=== PATIENT | female | born 2000 | race Caucasian/White ===

== ENCOUNTER 2018-11-26 02:26 | Emergency (ER) | payer SELFPAY ==
[2018-11-26 04:32] LABS: Basophils % 0.7 % (0-1.3); Hematocrit 37.9 % (36.0-45.0); Lymphocytes % 35.8 % (15.3-44.8); MPV 7.3 fL (7.6-11.3)
[2018-11-26 04:55] LABS: ALT/SGPT 53 U/L (12-78); AST/SGOT 21 U/L (15-37); Albumin 4.3 g/dL (3.4-5.0); Alkaline Phosphatase 82 U/L (45-117); BUN Blood Urea Nitrogen 15 mg/dL (7-18); Bicarbonate 23 mmol/L (21-32); Bilirubin Direct 0.1 mg/dL (0-0.2); Bilirubin Total 0.3 mg/dL (0.2-1.0); Glucose Level 93 mg/dL (74-106); Lipase 83 U/L (73-393); NT PRO-BNP 34 pg/mL (<125); Protein, Total 8.7 g/dL (6.4-8.2); Sodium Level 142 mmol/L (136-145); Troponin (Emerg Dept Use Only) < 0.02 ng/mL (0.0-0.045)
[2018-11-26 05:00] LABS: Urine Blood 1+ (NEG); Urine Glucose NEGATIVE (NEG); Urine Protein NEGATIVE (NEG); Urine Specific Gravity 1.025 (1.005-1.030); Urine pH 6.5 (5.0-7.0)
--- NOTE | 2018-11-26 06:29 | ER ---
Nurse's Notes [facility] Name: Nia Cowan Age: 18 yrs Sex: Female : 2000 Arrival Date: 11/26/2018 Time: 02:31 Bed 6 Private MD: Diagnosis: Chest pain on breathing;Urinary tract infection, site not specified Presentation: 11/26 02:55 Presenting complaint: Patient states: Chest pain radiating to back that began about lp1 2300, no improvement; States shortness of breath. Transition of care: patient was not received from another setting of care. Onset of symptoms was November 25, 2018 at 23:00. Risk Assessment: Do you want to hurt yourself or someone else? Patient reports no desire to harm self or others. Initial Sepsis Screen: Does the patient meet any 2 criteria? No. Patient's initial sepsis screen is negative. Does the patient have a suspected source of infection? No. Patient's initial sepsis screen is negative. Care prior to arrival: None. 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 - Social history:: Smoking status: Patient/guardian denies using tobacco. - Ebola Screening: : No symptoms or risks identified at this time. - Family history:: not pertinent. Screenin:57 Abuse screen: Denies threats or abuse. Denies injuries from another. Nutritional lp1 screening: No deficits noted. Tuberculosis screening: No symptoms or risk factors identified. Fall Risk None identified. Assessment: 03:00 General: Appears in no apparent distress. Behavior is calm, cooperative, appropriate lp1 for age. Pain: Complains of pain in chest Pain radiates to back Pain currently is 8 out of 10 on a pain scale. Neuro: Level of Consciousness is awake, alert, obeys commands, Oriented to person, place, time, situation. Cardiovascular: Reports chest pain, Patient's skin is warm and dry. Rhythm is sinus rhythm. Respiratory: Reports shortness of breath Airway is patent Respiratory effort is even, unlabored, Breath sounds are clear bilaterally. Onset: The symptoms/episode began/occurred gradually, the patient has mild shortness of breath. GI: No signs and/or symptoms were reported involving the gastrointestinal system. : No signs and/or symptoms were reported regarding the genitourinary system. EENT: No signs and/or symptoms were reported regarding the EENT system. Derm: Skin is pink, warm \\T\\ dry. Musculoskeletal: No signs and/or symptoms reported regarding the musculoskeletal system. 04:25 Reassessment: Patient anxious during peripheral IV insertion, became diaphoretic lp1 stating, "I feel like I'm going to pass out"; BP 98/63 HR 79 O2 99% RA. 04:32 Reassessment: Patient drinking water at this time Patient states feeling better. lp1 06:12 Reassessment: radiology transporter explained to dr that pt's iv went bad while injecting fc contrast. Dr requested that IV be restarted. I went in to talk to pt and look for a site to start IV and pt stated that she did not want IV restarted. Dr aware. 06:15 Reassessment: Dr. Monaco spoke with patient about leaving AMA, patient demonstrates lp1 wanting to leave, "I will come back if it gets worse"; Patient ambulating with significant other. Vital Signs: 02:56 BP 130 / 89; Pulse 95; Resp 18; Temp 98.5(O); Pulse Ox 99% on R/A; Weight 90.72 kg; lp1 Height 5 ft. 1 in. (154.94 cm); Pain 8/10; 03:30 BP 127 / 72; Pulse 79; Resp 18; Pulse Ox 99% on R/A; lp1 04:31 BP 117 / 69; Pulse 69; Resp 20; Pulse Ox 98% on R/A; lp1 06:28 BP 120 / 70; Pulse 87; Resp 16; Pulse Ox 99% on R/A; lp1 02:56 Body Mass Index 37.79 (90.72 kg, 154.94 cm) lp1 ED Course: 02:31 Patient arrived in ED. cf2 02:50 Lorraine Beaver, KRISSY is Primary Nurse. lp1 02:56 Triage completed. lp1 02:57 Arm band placed on left wrist. lp1 02:58 Patient has correct armband on for positive identification. Placed in gown. Bed in low lp1 position. 03:09 Russell Monaco MD is Attending Physician. flo 03:59 XRAY Chest (1 view) In Process Unspecified. EDMS 04:29 Accessed peripheral vein via ultrasound, utilizing dynamic ultrasound technique using lp1 ,sterile technique, per hospital protocol. Clean \\T\\ dry. Good blood return. Flushes easily. 22g to R AC. 04:51 Radiology exam delayed due to lab results not completed at this time. (BUN/Creatinine) kw1 test not completed at this time. 06:16 Note: Patient infiltrated approximately 60 ml of IV contrast during CT PE exam. kw1 Returned patient to ER and advised nurse of infiltration as well as Dr. Monaco. Patient left AMA.. 06:27 No provider procedures requiring assistance completed. IV discontinued, No lp1 redness/swelling at site. Pressure dressing applied. Administered Medications: 06:28 Not Given (Patient Refused): morphine 2 mg IVP once; (PAIN>8) RASS on ADMN: Combtv4, lp1 Very Agttd3, Agttd2, Rstlss1, AlertClm0, Drwsy-1, LtSdtn-2, ModSdtn-3, DpSdtn-4, UnArsble-5 x2 06:28 Not Given (Patient Refused): Zofran 4 mg IVP once; over 2 minutes lp1 Outcome: 06:28 AMA AMA form signed lp1 06:28 Condition: stable 06:29 Patient left the ED. lp1 Signatures: Dispatcher [employer] EDOR Russell Monaco MD MD cha Chretien, Felicia, RN RN Lorraine Barnard, KRISSY RN lp1 Desire Pierce kw1 Hugo Huynh cf2 Corrections: (The following items were deleted from the chart) 03:20 02:56 BP 130 / 89; Pulse 95bpm; Resp 18bpm; Pulse Ox 99% RA; 90.72 kg; Height 5 ft. 1 lp1 in.; BMI: 37.7; Pain 8/10; lp1 03:45 03:00 Pain: Complains of pain in chest Pain radiates to back Pain currently is 8 out of lp1 10 on a pain scale. lp1 03:45 03:00 Respiratory: Reports shortness of breath Airway is patent Respiratory effort is lp1 even, unlabored, Breath sounds are clear bilaterally. lp1
--- NOTE | 2018-11-26 06:29 | EDPHYS ---
Physician Documentation [facility] Name: Nia Cowan Age: 18 yrs Sex: Female : 2000 Arrival Date: 11/26/2018 Time: 02:31 Bed 6 Private MD: ED Physician Russell Monaco HPI: 11/26 03:46 This 18 yrs old Female presents to ER via Ambulatory with complaints of flo Shortness Of Breath, Chest Pain. 03:46 The patient has shortness of breath at rest, with light activity. Onset: The flo symptoms/episode began/occurred this morning, today. Duration: The symptoms are intermittent, with no pattern. The patient's shortness of breath has no apparent modifying factors. Associated signs and symptoms: The patient has no apparent associated signs or symptoms. Severity of symptoms: At their worst the symptoms were mild moderate in the emergency department the symptoms are unchanged. The patient has not experienced similar symptoms in the past. 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 - Social history:: Smoking status: Patient/guardian denies using tobacco. - Ebola Screening: : No symptoms or risks identified at this time. - Family history:: not pertinent. ROS: 03:46 Constitutional: Negative for fever, chills, and weight loss, Eyes: Negative for injury, flo pain, redness, and discharge, ENT: Negative for injury, pain, and discharge, Neck: Negative for injury, pain, and swelling, Abdomen/GI: Negative for abdominal pain, nausea, vomiting, diarrhea, and constipation, Back: Negative for injury and pain, : Negative for injury, bleeding, discharge, and swelling, MS/Extremity: Negative for injury and deformity, Skin: Negative for injury, rash, and discoloration, Neuro: Negative for headache, weakness, numbness, tingling, and seizure. 03:46 Cardiovascular: Positive for chest pain. 03:46 Respiratory: Positive for cough, with no reported sputum. Exam: 03:46 Constitutional: This is a well developed, well nourished patient who is awake, alert, flo and in no acute distress. Head/Face: Normocephalic, atraumatic. Eyes: Pupils equal round and reactive to light, extra-ocular motions intact. Lids and lashes normal. Conjunctiva and sclera are non-icteric and not injected. Cornea within normal limits. Periorbital areas with no swelling, redness, or edema. ENT: Nares patent. No nasal discharge, no septal abnormalities noted. Tympanic membranes are normal and external auditory canals are clear. Oropharynx with no redness, swelling, or masses, exudates, or evidence of obstruction, uvula midline. Mucous membranes moist. Neck: Trachea midline, no thyromegaly or masses palpated, and no cervical lymphadenopathy. Supple, full range of motion without nuchal rigidity, or vertebral point tenderness. No Meningismus. Cardiovascular: Regular rate and rhythm with a normal S1 and S2. No gallops, murmurs, or rubs. Normal PMI, no JVD. No pulse deficits. Respiratory: Lungs have equal breath sounds bilaterally, clear to auscultation and percussion. No rales, rhonchi or wheezes noted. No increased work of breathing, no retractions or nasal flaring. Abdomen/GI: Soft, non-tender, with normal bowel sounds. No distension or tympany. No guarding or rebound. No evidence of tenderness throughout. Back: No spinal tenderness. No costovertebral tenderness. Full range of motion. Pelvic Exam: Normal external genitalia. Speculum exam with closed cervical os, no discharge or bleeding noted. Bimanual exam with normal adnexa, no adnexal or cervical motion tenderness. Normal uterus. Female : Normal external genitalia. Skin: Warm, dry with normal turgor. Normal color with no rashes, no lesions, and no evidence of cellulitis. MS/ Extremity: Pulses equal, no cyanosis. Neurovascular intact. Full, normal range of motion. Neuro: Awake and alert, GCS 15, oriented to person, place, time, and situation. Cranial nerves II-XII grossly intact. Motor strength 5/5 in all extremities. Sensory grossly intact. Cerebellar exam normal. Normal gait. Psych: Awake, alert, with orientation to person, place and time. Behavior, mood, and affect are within normal limits. 03:46 Chest/axilla: Inspection: normal, Palpation: is normal, no acute changes, Axilla: are normal, Breasts: are normal, Lymph nodes: lymphadenopathy is not appreciated. Vital Signs: 02:56 BP 130 / 89; Pulse 95; Resp 18; Temp 98.5(O); Pulse Ox 99% on R/A; Weight 90.72 kg; lp1 Height 5 ft. 1 in. (154.94 cm); Pain 8/10; 03:30 BP 127 / 72; Pulse 79; Resp 18; Pulse Ox 99% on R/A; lp1 04:31 BP 117 / 69; Pulse 69; Resp 20; Pulse Ox 98% on R/A; lp1 06:28 BP 120 / 70; Pulse 87; Resp 16; Pulse Ox 99% on R/A; lp1 02:56 Body Mass Index 37.79 (90.72 kg, 154.94 cm) lp1 MDM: 03:09 Patient medically screened. [facility] 03:49 Data reviewed: vital signs, nurses notes, lab test result(s), EKG, radiologic studies, [facility] CT scan, plain films, ultrasound. 11/26 03:46 Order name: Basic Metabolic Panel [facility] 11/26 03:46 Order name: CBC with Diff; Complete Time: 05:17 [facility] 11/26 03:46 Order name: LFT's [facility] 11/26 03:46 Order name: Magnesium; Complete Time: 05:17 [facility] 11/26 03:46 Order name: NT PRO-BNP; Complete Time: 05:17 [facility] 11/26 03:46 Order name: Troponin (emerg Dept Use Only) [facility] 11/26 03:46 Order name: Lipase; Complete Time: 05:17 [facility] 11/26 03:47 Order name: Basic Metabolic Panel; Complete Time: 05:17 [facility] 11/26 03:47 Order name: Liver (Hepatic) Function; Complete Time: 05:17 [facility] 11/26 03:47 Order name: Troponin (Emerg Dept Use Only); Complete Time: 05:17 [facility] 11/26 04:54 Order name: Urine Dipstick--Ancillary (enter results); Complete Time: 05:17 [facility] 11/26 04:54 Order name: Urine --Ancillary (enter results); Complete Time: 05:17 [facility] 11/26 03:46 Order name: XRAY Chest (1 view) [facility] 11/26 03:46 Order name: EKG; Complete Time: 03:47 [facility] 11/26 03:46 Order name: Cardiac monitoring; Complete Time: 03:48 [facility] 11/26 03:46 Order name: EKG - Nurse/Tech; Complete Time: 03:48 [facility] 11/26 03:46 Order name: IV Saline Lock; Complete Time: 04:29 [facility] 11/26 03:46 Order name: Labs collected and sent; Complete Time: 04:29 [facility] 11/26 03:46 Order name: O2 Per Protocol; Complete Time: 03:48 [facility] 11/26 03:46 Order name: O2 Sat Monitoring; Complete Time: 03:48 [facility] 11/26 03:46 Order name: Urine Dipstick-Ancillary (obtain specimen); Complete Time: 04:58 [facility] 11/26 03:46 Order name: Urine Test (obtain specimen); Complete Time: 04:58 [facility] Administered Medications: 06:28 Not Given (Patient Refused): morphine 2 mg IVP once; (PAIN>8) RASS on ADMN: Combtv4, lp1 Very Agttd3, Agttd2, Rstlss1, AlertClm0, Drwsy-1, LtSdtn-2, ModSdtn-3, DpSdtn-4, UnArsble-5 x2 06:28 Not Given (Patient Refused): Zofran 4 mg IVP once; over 2 minutes lp1 Disposition: 11/26/18 06:28 Patient has left against medical advice. Impression: Chest pain on breathing, Urinary tract infection, site not specified. - Patients states they are going to Home. - Condition is Undetermined. - Discharge Instructions: Chest Wall Pain, Costochondritis, Urinary Tract Infection, Adult, Costochondritis, Jwdh-ve-Qfqi, Chest Wall Pain, Nnpy-hq-Bxqp, Urinary Tract Infection, Adult, Lckt-yq-Sdiv. - Prescriptions for Cipro 250 mg Oral Tablet - take 1 tablet by ORAL route every 12 hours; 14 tablet. Tylenol- Codeine #3 300-30 mg Oral Tablet - take 2 tablet by ORAL route every 6 hours As needed; 30 tablet. Follow up: Private Physician; When: Upon discharge from the Emergency Department; Reason: Recheck today's complaints, Continuance of care, Re-evaluation by your physician. - Problem is new. - Symptoms have improved. Signatures: Dispatcher [employer] [facility] Russell Monaco MD MD cha Pena, Laura, RN RN lp1 Corrections: (The following items were deleted from the chart) 06:25 03:47 Chest For PE Angio+[id number].BRZ ordered. [facility] 06:29 06:28 11/26/2018 06:28 Patients has left against medical advice. Impression: Chest pain lp1 on breathing; Urinary tract infection, site not specified. Patient states they are going to Home. Condition is Undetermined. Discharge Instructions: Chest Wall Pain, Costochondritis, Urinary Tract Infection, Adult, Costochondritis, Sysg-bl-Lchk, Chest Wall Pain, Cdxh-us-Ovny, Urinary Tract Infection, Adult, Mwvv-ur-Hljz. Prescriptions for Cipro 250 mg Oral Tablet - take 1 tablet by ORAL route every 12 hours; 14 tablet, Tylenol-Codeine #3 300-30 mg Oral Tablet - take 2 tablet by ORAL route every 6 hours As needed; 30 tabletFollow up: Private Physician; When: Upon discharge from the Emergency Department; Reason: Recheck today's complaints, Continuance of care, Re-evaluation by your physician. Problem is new. Symptoms have improved. flo
[2018-11-26 06:37] VITALS: TEMP 98.5
[2018-11-26 06:40] VITALS: BP 120/70; O2SAT 99
--- NOTE | 2018-11-26 09:00 | RAD REPORT ---
EXAM DESCRIPTION: [facility] Single View11/26/2018 4:00 am CLINICAL HISTORY: Chest pain COMPARISON: none FINDINGS: The lungs appear clear of acute infiltrate. The heart is normal size IMPRESSION: No acute abnormalities displayed
--- NOTE | 2018-11-27 18:26 | EKG ---
Test Date: 2018-11-26 Test Time: 03:05:45 Photogrammetric Tech: JOSE MEASUREMENT RESULTS: Intervals: Rate: 75 CO: 148 QRSD: 92 QT: 370 QTc: 413 [place]: P: 47 CO: 148 QRS: 34 T: 29 INTERPRETIVE STATEMENTS: Normal sinus rhythm with sinus arrhythmia Normal ECG No previous ECG available for comparison Electronically Signed On 11-27-18 18:23:04 CDT by Neeraj Bowie
== END 2018-11-26 06:29 | disposition left against medical advice (07) ==
LOC: ER 02:26
DX: R07.1 Chest pain on breathing (principal); N39.0 Urinary tract infection, site not specified; Z88.6 Allergy status to analgesic agent
CPT/HCPCS: 36415; 71045; 80048; 80076; 81003; 81025; 83690; 83735; 83880; 84484; 85025; 93005; 99284